=== PATIENT | female | born 1960 | race Caucasian/White ===

== ENCOUNTER 2019-06-17 09:13 | Observation (INO) ==
[2019-06-17] MEDS ORDERED: Aspirin 81 MG TAB.CHEW PO ONE (09:32)
[2019-06-17 09:43] LABS: Basophils # 0.1 K/mcL (0.0-0.2); Basophils % 0.7 %; Eosinophils # 0.2 K/mcL (0.0-0.6); Eosinophils % 2.7 %; Hematocrit 39.4 % (35.3-44.9); Hemoglobin 12.9 g/dL (11.5-15.4); Immature Granulocytes % 0.3 % (0-4); Lymphocytes # 2.2 K/mcL (0.6-4.6); Lymphocytes % 31.9 %; Mean Corpuscular HGB Conc 32.7 g/dL (31.6-35.5); Mean Corpuscular Hemoglobin 30.3 pg (28.0-33.3); Mean Corpuscular Volume 92.5 fL (83.0-100.0); Mean Platelet Volume 10.3 fL (9.4-12.4); Monocytes # 0.6 K/mcL (0.0-1.3); Monocytes % 8.4 %; Neutrophils # 3.9 K/mcL (1.6-8.9); Platelet Count 225 K/mcL (140-400); Red Blood Count 4.26 M/mcL (3.82-4.97); Red Cell Distribution Width 13.4 % (11.5-14.5)
[2019-06-17 09:53] LABS: BUN/Creatinine Ratio 28 (6-26); Blood Urea Nitrogen 24 mg/dL (8-23); Calcium 10.8 mg/dL (8.6-10.3); Carbon Dioxide 25 mEq/L (23-29); Chloride 104 mEq/L (98-107); Glucose 120 mg/dL (70-105); Osmolality,Calculated 291 (280-300); Potassium 4.1 mEq/L (3.5-5.1); Sodium 138 mEq/L (136-145); Troponin I 0.03 ng/mL (< 0.04); eGFR For African Americans > 60 (> 60); eGFR For Non-African Americans > 60 (> 60)
[2019-06-17] MEDS: Nitroglycerin 0.4 MG TAB.SUBL SL PRN ×2 (10:07→10:26)
[2019-06-17] MEDS ORDERED: Isovue-370 500 ML BOTTLE IVP ONE (10:34)
[2019-06-17] MEDS ORDERED: Naloxone 0.4 MG/ML INJ IVP PRN (12:02)
[2019-06-17] MEDS ORDERED: Ondansetron 4 MG/2 ML VIAL IVP PRN (12:02)
[2019-06-17] MEDS ORDERED: Dextrose Gel 15 GM/37.5 ML TUBE PO PRN ×2 (12:19)
[2019-06-17] MEDS ORDERED: D5% in Water 1,000 ML IVC PRN (12:19)
[2019-06-17] MEDS ORDERED: *HR* Dextrose 50 % in Water (Syg) 50 ML SYRINGE IVP PRN (12:19)
[2019-06-17] MEDS: Insulin LISPRO 300 UNITS/3 ML VIAL SQ SCH ×2 (17:20→20:30)
[2019-06-17] MEDS ORDERED: Insulin LISPRO 300 UNITS/3 ML VIAL SQ SCH (18:00)
[2019-06-17] MEDS: *HR* LORazepam 1 MG TABLET PO SCH (23:42)
[2019-06-18 02:18] LABS: Alanine Aminotransferase 18 Units/L (7-52); Albumin 3.7 g/dL (3.5-5.7); Albumin/Globulin Ratio 1.4 (1.1-2.2); Alkaline Phosphatase 79 Units/L (34-104); Aspartate Amino Transferase 17 Units/L (13-39); BUN/Creatinine Ratio 25 (6-26); Bilirubin,Total 0.9 mg/dL (0.3-1.0); Blood Urea Nitrogen 20 mg/dL (8-23); Calcium 9.9 mg/dL (8.6-10.3); Carbon Dioxide 26 mEq/L (23-29); Chloride 107 mEq/L (98-107); Globulin 2.6 g/dL (2.4-3.5); Glucose 108 mg/dL (70-105); Osmolality,Calculated 289 (280-300); Potassium 3.7 mEq/L (3.5-5.1); Sodium 138 mEq/L (136-145); Total Protein 6.3 g/dL (6.4-8.9); eGFR For African Americans > 60 (> 60); eGFR For Non-African Americans > 60 (> 60)
[2019-06-18 02:20] LABS: Chol/HDL Ratio 3.6 (0-4.9); Magnesium 1.7 mg/dL (1.6-2.6)
[2019-06-18 07:53] LABS: Estimated Average Glucose 146 mg/dl
[2019-06-18] MEDS: Insulin LISPRO 300 UNITS/3 ML VIAL SQ SCH ×4 (08:04→21:00)
[2019-06-18] MEDS ORDERED: Regadenoson 0.4 MG/5 ML SYRINGE IVP ONE ×2 (08:04→08:12)
[2019-06-18] MEDS ORDERED: Metoprolol XL (24 HR) Succ 25 MG TAB.ER.24H PO SCH (09:00)
[2019-06-18] MEDS: Multivit/Ca/Min/Fe/FA 1 TAB TABLET PO SCH (09:45)
[2019-06-18] MEDS: Spironolactone 25 MG TABLET PO SCH (09:45)
[2019-06-18] MEDS: Pregabalin 25 MG CAPSULE PO SCH ×2 (09:45→21:00)
[2019-06-18] MEDS: Furosemide 20 MG TABLET PO SCH (09:45)
[2019-06-18] MEDS: *HR* LORazepam 1 MG TABLET PO SCH ×2 (09:45→21:00)
[2019-06-18] MEDS: Levothyroxine 25 MCG TABLET PO SCH (09:49)
[2019-06-18] MEDS: *HR* Heparin 5,000 UNIT/ML VIAL SQ SCH (16:45)
[2019-06-18] MEDS ORDERED: *HR* LORazepam 1 MG TABLET PO SCH (22:19)
[2019-06-19] MEDS: *HR* Heparin 5,000 UNIT/ML VIAL SQ SCH (05:46)
[2019-06-19] MEDS: Pregabalin 25 MG CAPSULE PO SCH (08:08)
[2019-06-19] MEDS: Multivit/Ca/Min/Fe/FA 1 TAB TABLET PO SCH (08:08)
[2019-06-19] MEDS: *HR* LORazepam 1 MG TABLET PO SCH (08:08)
[2019-06-19] MEDS: Spironolactone 25 MG TABLET PO SCH (08:08)
[2019-06-19] MEDS: Furosemide 20 MG TABLET PO SCH (08:08)
[2019-06-19] MEDS: Levothyroxine 25 MCG TABLET PO SCH (08:08)
[2019-06-19] MEDS: Insulin LISPRO 300 UNITS/3 ML VIAL SQ SCH ×2 (08:09→11:56)
[2019-06-19 11:09] VITALS: BP 123/75
[2019-06-19] MEDS ORDERED: 0.9 % Sodium Chloride 1,000 ML ONE ×2 (15:16→15:20)
[2019-06-19] MEDS ORDERED: Heparin 1,000 UNITS/500 mL 500 ML ONE (15:16)
[2019-06-19] MEDS ORDERED: ISOVUE-370 200 ML INFUS..BTL ONE (15:16)
[2019-06-19] MEDS ORDERED: Nitroglycerin 1,000 MCG/10 ML VIAL IV ONE (15:16)
[2019-06-19] MEDS ORDERED: *HR* Heparin 10,000 UNIT/10 ML VIAL ONE (15:16)
[2019-06-19] MEDS ORDERED: *HR* Etomidate 20 MG/10 ML AMPUL IVP ONE (15:45)
[2019-06-19] MEDS ORDERED: *HR* Midazolam HCl 5 MG/5 ML VIAL IVP ONE (15:45)
[2019-06-19] MEDS ORDERED: *HR* Succinylcholine 200 MG/10 ML VIAL IVP ONE (15:45)
== END 2019-06-19 15:46 | disposition home or self-care (01) ==
LOC: 3BNU 09:13 → EMEROOARM 09:13 → 3BNU 13:20
PROVIDERS: ADMIT Internal Medicine; ATTEND Internal Medicine

== ENCOUNTER 2020-08-06 00:14 | Observation (INO) ==
[2020-08-06] MEDS ORDERED: Perflutren Lipid Microsphere 1.3 ML in 0.9 % Sodium Chloride 8.7 ML IVP PRN (03:24)
[2020-08-06 05:15] LABS: Hematocrit 34.4 % (35.3-44.9); Hemoglobin 11.2 g/dL (11.5-15.4); Mean Corpuscular HGB Conc 32.6 g/dL (31.6-35.5); Mean Corpuscular Hemoglobin 29.3 pg (28.0-33.3); Mean Corpuscular Volume 90.1 fL (83.0-100.0); Platelet Count 208 K/mcL (140-400); Red Blood Count 3.82 M/mcL (3.82-4.97); Red Cell Distribution Width 13.6 % (11.5-14.5); White Blood Count 5.3 K/mcL (4.3-11.1)
[2020-08-06 05:19] LABS: INR 1.1
[2020-08-06 05:21] LABS: Activated Partial Thrombo Time 31.6 Seconds (26.0-36.0)
[2020-08-06 05:37] LABS: Alanine Aminotransferase 19 Units/L (7-52); Albumin 3.7 g/dL (3.5-5.7); Albumin/Globulin Ratio 1.5 (1.1-2.2); Alkaline Phosphatase 97 Units/L (34-104); Aspartate Amino Transferase 22 Units/L (13-39); BUN/Creatinine Ratio 15 (6-26); Bilirubin,Total 0.7 mg/dL (0.3-1.0); Blood Urea Nitrogen 14 mg/dL (8-23); Calcium 10.3 mg/dL (8.6-10.3); Carbon Dioxide 24 mEq/L (23-29); Chloride 108 mEq/L (98-107); Chol/HDL Ratio 3.5 (0-4.9); Cholesterol 118 mg/dL (< 200); Globulin 2.4 g/dL (2.4-3.5); Glucose 148 mg/dL (70-105); HDL Cholesterol 34 mg/dL (40-59); LDL Cholesterol,Calculated 56 mg/dL (< 100); Osmolality,Calculated 291 (280-300); Potassium 3.7 mEq/L (3.5-5.1); Sodium 139 mEq/L (136-145); Total Protein 6.1 g/dL (6.4-8.9); Triglycerides 142 mg/dL (< 150); Troponin I 0.03 ng/mL (< 0.04); eGFR For African Americans > 60 (> 60); eGFR For Non-African Americans > 60 (> 60)
[2020-08-06] MEDS ORDERED: Levothyroxine 25 MCG TABLET PO SCH (08:00)
[2020-08-06] MEDS ORDERED: Spironolactone 25 MG TABLET PO SCH (09:00)
[2020-08-06] MEDS ORDERED: Furosemide 20 MG TABLET PO SCH (09:00)
[2020-08-06] MEDS ORDERED: Aspirin Enteric Coated 81 MG Tablet PO SCH (09:00)
[2020-08-06] MEDS ORDERED: Metoprolol XL (24 HR) Succ 25 MG TAB.ER.24H PO SCH (09:00)
[2020-08-06] MEDS ORDERED: lisinopriL 5 MG TABLET PO SCH (09:00)
[2020-08-06] MEDS ORDERED: Pregabalin 25 MG CAPSULE PO SCH (09:00)
[2020-08-06] MEDS ORDERED: Multivit/Ca/Min/Fe/FA 1 TAB TABLET PO SCH (09:00)
[2020-08-06] MEDS ORDERED: *HR* LORazepam 1 MG TABLET PO SCH (09:00)
[2020-08-06 10:52] LABS: Estimated Average Glucose 160 mg/dl; Hemoglobin A1C 7.2 %
[2020-08-06 15:16] LABS: Bilirubin,Urine Negative (Negative); Blood,Urine Negative (Negative); Clarity,Urine Clear (Clear); Color,Urine Yellow (Yellow); Glucose,Urine (UA) Normal (Normal); Ketones,Urine Negative (Negative); Leukocyte Esterase,Urine Negative (Negative); Nitrite,Urine Negative (Negative); PH,Urine 5.5 pH Units (5.0-8.0); Protein,Urine Trace mg/dL (Neg-Trace); Specific Gravity,Urine 1.016 (1.010-1.025); Urobilinogen,Urine Normal (Normal)
[2020-08-06 16:31] VITALS: BP 165/80
== END 2020-08-06 18:49 | disposition home or self-care (01) ==
LOC: 3BNU
PROVIDERS: ADMIT Internal Medicine Nephrology; ATTEND Internal Medicine Nephrology